=== PATIENT | female | born 2000 | race Caucasian/White ===

== ENCOUNTER 2024-03-18 21:25 | Emergency (ER) | payer BC, MEDICAID ==
[~2024-03-18] VITALS: Ht 154.9 cm; Wt 102.1 kg
[2024-03-18] MEDS ORDERED: LORAZEPAM 2 MG/1 ML VIAL ONE (22:12)
[2024-03-18] MEDS: IPRATROPIUM BROMIDE 0.5 MG/2.5 ML NEBU NEB ONE (22:17)
[2024-03-18] MEDS: ALBUTEROL SULFATE 2.5 MG/3 ML NEBU NEB ONE (22:17)
[2024-03-18 22:20] VITALS: O2SAT 94
[2024-03-18] MEDS ORDERED: ALBUTEROL SULFATE 2.5 MG/3 ML NEBU ONE (22:20)
[2024-03-18] MEDS ORDERED: IPRATROPIUM BROMIDE 0.5 MG/2.5 ML NEBU ONE (22:20)
[2024-03-18] MEDS: LORAZEPAM 2 MG/1 ML VIAL IV ONE (22:22)
[2024-03-18] MEDS ORDERED: methylPREDNISolone SOD SUCC 125 MG/2 ML VIAL ONE (22:23)
[2024-03-18 22:24] LABS: BASOPHILS # (AUTO) 0.2 K/UL (0.0-0.2); BASOPHILS % (AUTO) 1.4 % (0.0-2.0); DIFFERENTIAL COMMENT 1; EOSINOPHILS # (AUTO) 0.6 K/uL (0.0-0.7); EOSINOPHILS % (AUTO) 3.4 % (0.0-7.0); HEMATOCRIT 40.7 % (31.2-41.9); HEMOGLOBIN 13.7 g/dL (10.9-14.3); LYMPHOCYTES # (AUTO) 1.4 K/uL (0.8-4.8); LYMPHOCYTES % (AUTO) 7.9 % (20.5-51.5); MEAN CORPUSCULAR HEMOGLOBIN 27.7 uug (24.7-32.8); MEAN CORPUSCULAR HGB CONC 34 g/dL (32.3-35.6); MEAN CORPUSCULAR VOLUME 82.3 fL (75.5-95.3); MONOCYTES % (AUTO) 5.6 % (0.0-11.0); NEUTROPHILS # (AUTO) 14.1 K/uL (1.8-8.9); NEUTROPHILS % (AUTO) 81.7 % (38.5-71.5); PLATELET COUNT (AUTO) 559 K/uL (179-408); RED BLOOD CELL COUNT(AUTO) 4.94 MIL/uL (3.63-4.92); RED CELL DISTRIBUTION WIDTH 13.5 % (12.3-17.7); WHITE BLOOD COUNT (AUTO) 17.3 K/uL (3.8-11.8)
[2024-03-18] MEDS: methylPREDNISolone SOD SUCC 125 MG/2 ML VIAL IV ONE (22:28)
[2024-03-18 22:29] LABS: CREATININE 0.9 mg/dL (0.6-1.3); POTASSIUM 4.1 mmol/L (3.5-5.1)
[2024-03-18 22:40] VITALS: O2SAT 99
[2024-03-18] MEDS ORDERED: ONDANSETRON 4 MG/2 ML VIAL ONE (22:45)
[2024-03-18] MEDS: ONDANSETRON 4 MG/2 ML VIAL IV ONE (23:07)
[2024-03-19] MEDS ORDERED: CEFTRIAXONE /D5W 50ML IVPB **ER PYXIS IV ONE (00:18)
[2024-03-19] MEDS: CEFTRIAXONE 2 G in IV DEXTROSE 5% 100 ML IV ONE (00:38)
[2024-03-19] MEDS: ACETAMINOPHEN ES 500 MG TABLET PO ONE (00:38)
[2024-03-19] MEDS: ALBUTEROL SULFATE 2.5 MG/3 ML NEBU NEB ONE (02:12)
[2024-03-19 02:15] VITALS: O2SAT 94
[2024-03-19] MEDS ORDERED: ALBUTEROL SULFATE 2.5 MG/3 ML NEBU ONE (02:15)
[2024-03-19] MEDS ORDERED: PRED20TA PO (02:18)
[2024-03-19] MEDS ORDERED: ALBU6.7H9 INH (02:18)
[2024-03-19] MEDS ORDERED: CEPH500C2 PO (02:18)
[2024-03-19] MEDS ORDERED: BUDE10.2 INH (02:19)
[2024-03-19 02:35] VITALS: O2SAT 99
[2024-03-19] MEDS ORDERED: KETOROLAC TROMETHAMINE 30 MG INJ ONE (02:55)
[2024-03-19] MEDS: KETOROLAC TROMETHAMINE 30 MG INJ IVP ONE (02:59)
[2024-03-19] MEDS: IV NORMAL SALINE 1000 ML BAG IV ONE (02:59)
[2024-03-19 04:13] VITALS: BP 120/75; TEMP 98.6; O2SAT 100
== END 2024-03-19 04:13 | disposition home or self-care (01) ==
LOC: ER 21:28
DX: J45.901 Unspecified asthma with (acute) exacerbation (principal); F41.9 Anxiety disorder, unspecified; Z79.899 Other long term (current) drug therapy
CPT/HCPCS: 99291; 96375 ×2; 80048; 85025; 36415; 71045; 94640 ×2; 96365; 96361; J2060; J2919; J2405; J0696; J1885; J7040; A4606; A4663; A9150; J3590